=== PATIENT | male | born 1965 | race Caucasian/White ===

== ENCOUNTER 2021-02-22 10:38 | Emergency (ER) | payer OTHER, BC ==
[2021-02-22 10:48] VITALS: BP 177/92
--- NOTE | 2021-02-22 10:49 | ED Physician Documentation ---
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.) Where injury occurred: Work Timing - onset: Today Timing - details: Abrupt onset, Still present Worsened by: Moving Associated symptoms: No: Weakness, Numbness, Tingling Similar symptoms before: Has not had sx before Recently seen: Not recently seen Review of Systems Constitutional: denies: Fever, Chills Nose: denies: Rhinorrhea / runny nose, Congestion Throat: denies: Sore throat Respiratory: denies: Cough Neurologic: denies: Focal weakness, Numbness PD PAST MEDICAL HISTORY - Past Medical History Cardiovascular: None Respiratory: None Neuro: None Endocrine/Autoimmune: None - Allergies Allergies/Adverse Reactions: Allergies Allergy/AdvReac Type Severity Reaction Status Date / Time Penicillins Allergy Unknown Verified 02/22/21 10:48 PD ED PE NORMAL - Vitals Vital signs reviewed: Yes - General General: Alert and oriented X 3, No acute distress, Well developed/nourished - Derm Derm: Normal color, Warm and dry - Extremities Extremities: Other (Left hand in the thenar to distal wrist area shows a 5.2 cm laceration to the fatty tissue without foreign body. Minimal bleeding at this time. Normal sensation color and capillary refill in the fingers. No motor involvement.) - Neuro Neuro: Alert and oriented X 3, No motor deficit, No sensory deficit Results - Vitals Vitals: Vital Signs - 24 hr 02/22/21 10:43 Temperature 36.6 C Heart Rate 77 Respiratory 16 Rate Blood Pressure 177/92 H O2 Saturation 98 Oxygen O2 Source Room air Procedures - Laceration (location) left hand Length in cm: 5.2 Wound type: Linear, Into subcut fat, Clean Neurovascular status: Sensory intact, Motor intact Tendon involvement: Tendon intact Anesthesia: Lidocaine 1% with epi Wound preparation: Wound explored, To the base Deep layer closure: Vicryl, size #-0 - enter number (5), # sutures - enter number (10) Skin layer closure: Nylon, Running, Size #-0 - enter number (4), Sutures - enter # (21) Other: Patient tolerated well, No complications, Neurovascular intact, Dressing applied, Tetanus booster given PD MEDICAL DECISION MAKING - ED course Complexity details: considered differential (lac to fatty tissue layer but long and edges apart on volar radial aspect thenar to wrist. ), d/w patient Departure - Departure Disposition: 01 Home, Self Care Clinical Impression: Hand laceration Qualifiers: Encounter type: initial encounter Foreign body presence: without foreign body Laterality: left Qualified Code(s): S61.412A - Laceration without foreign body of left hand, initial encounter Condition: Stable Record reviewed to determine appropriate education?: Yes Instructions: ED Laceration Hand Comments: It is okay to wash and shower. Clean off the wound twice a day with soap and water, or peroxide and water. Apply some antibiotic ointment to it to keep it moist. Also to watch for signs of infection such as purulence, redness or increasing pain. Return to your primary care or the ER at the specified time for suture removal. Suture removal 10 to 12 days. The particularly nice to your hand and wrist the first 2 or 3 days to allow initial sealing of the wound. Then progressive use of it as tolerated based on comfort. Tylenol ibuprofen if needed for pains. You did receive a tetanus booster today. Discharge Date/Time: 02/22/21 12:20
[2021-02-22] MEDS ORDERED: LIDOCAINE 1%-EPI 1:100000 20 ML MDV SUBQ STA (10:54)
[2021-02-22] MEDS ORDERED: TETANUS/DIPHTHERIA/PERTUSSIS 0.5 ML SYRINGE IM ONE (10:54)
== END 2021-02-22 12:20 | disposition home or self-care (01) ==
LOC: ED 10:38
DX: S61.412A Laceration without foreign body of left hand, initial encounter (principal); W26.0XXA Contact with knife, initial encounter; Y99.0 Civilian activity done for income or pay; Z23 Encounter for immunization
CPT/HCPCS: 1040M; 12042; 90471

== ENCOUNTER 2021-03-06 13:30 | Emergency (ER) | payer OTHER, BC ==
[2021-03-06 13:37] VITALS: BP 171/94
--- NOTE | 2021-03-06 13:53 | ED Physician Documentation ---
History of Present Illness - Stated complaint Stated Complaint: STITCH REMOVAL - Chief complaint Chief Complaint: Laceration - Additonal information Additional information: 55-year-old male presents the emergency department for suture removal on his left wrist. 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 This is a [employer] [id number]. Review of Systems Constitutional: reports: Reviewed and negative Throat: reports: Reviewed and negative Cardiac: reports: Reviewed and negative Respiratory: reports: Reviewed and negative Skin: reports: Laceration (s) PD PAST MEDICAL HISTORY - Past Medical History Past Medical History: No Cardiovascular: None Respiratory: None Neuro: None Endocrine/Autoimmune: None - Past Surgical History Past Surgical History: No - Present Medications Home Medications: Ambulatory Orders Medication Instructions Recorded Confirmed No Known Home Medications 03/06/21 03/06/21 - Allergies Allergies/Adverse Reactions: Allergies Allergy/AdvReac Type Severity Reaction Status Date / Time Penicillins Allergy Unknown Verified 03/06/21 13:37 - Social History Does the pt smoke?: No Smoking Status: Never smoker Does the pt drink ETOH?: No Does the pt have substance abuse?: No PD ED PE EXPANDED - Extremities Extremities: Left hand (Lengthy 5 cm laceration on the left hand and wrist that has healed well. Running sutures are in place. No surrounding erythema. Wound is well approximated with wound edges) Results - Vitals Vitals: Vital Signs - 24 hr 03/06/21 13:33 Temperature 36.8 C Heart Rate 80 Respiratory 16 Rate Blood Pressure 171/94 H O2 Saturation 97 Oxygen O2 Source Room air PD MEDICAL DECISION MAKING - ED course Complexity details: d/w patient ED course: Running sutures were removed from the left wrist forearm. Laceration has healed well with no secondary signs of infection. Routine wound care and emergent return precautions discussed. L&I claim #[id number] Departure - Departure Disposition: 01 Home, Self Care Clinical Impression: Visit for suture removal Condition: Stable Record reviewed to determine appropriate education?: Yes Comments: Koffi we remove the running sutures from your left wrist/hand. Routine wound care is all you need for this at this time. I do recommend a thin layer of antibiotic ointment and a bandage until the wound is fully healed. The laceration does appear to have healed well.
== END 2021-03-06 14:00 | disposition home or self-care (01) ==
LOC: ED 13:30
DX: S61.512D Laceration without foreign body of left wrist, subsequent encounter (principal); W27.8XXD Contact with other nonpowered hand tool, subsequent encounter
CPT/HCPCS: 99281